=== PATIENT | male | born 1940 | race Caucasian/White ===

== ENCOUNTER → 2019-04-07 | Outpatient (CLI) | payer MEDICARE, OTHER ==
[~2019-04-07] MED LIST: DILTIAZEM HCL INJ 25 MG/5 ML VIAL IV ONE; REGADENOSON INJ 0.4 MG/5 ML DISP.SYRIN IV ONE
--- NOTE | 2019-04-13 23:02 | DRAGON STRESS TEST REPORT ---
Intravenous Lexiscan Cardiolite stress test using single photon emmision computerized tomography. Date of procedure: 04/07/2019. Ordering Provider: Dr. Jaky Smith. Patient's status: OPD. Indication: Dyspnea On Exertion in a patient with chronic atrial fibrillation.. Coronary risk factors: Age, hypertension, and dyslipidemia. Resting EKG: Atrial fibrillation with diffuse nonspecific ST-T changes. The patient's initial heart rate was in the 120s. Hence the patient was given 5 mg of IV Cardizem which slowed down the heart rate and subsequently this test was performed uneventfully. Stress EKG: No changes of ischemia. The patient had no chest pain or discomfort. There was no ventricular arrhythmias seen on the monitor Reason for termination: Protocol. Conclusions: Normal EKG and hemodynamic response to IV Lexiscan. Nuclear data: At rest the patient was given 15.17 millicuries of technetium 99m sestamibi injected intravenously. As per protocol rest non gated SPECT images were obtained. Subsequently the patient was given intravenous Lexiscan at a dose of 0.4 mg in 5 mL intravenously, followed by flush with normal saline. Subsequently the stress dose of 46.2 millicuries of technetium 99m sestamibi was injected intravenously. As per protocol stress gated images were obtained. Nuclear interpretation: Review of images showed that all segments of the myocardium had normal perfusion at rest, and normal perfusion post stress with IV Lexiscan. All segments of the myocardium had normal motion, contraction, and thickening by gated study. T. I D. ratio was abnormal at 1.51. Visually this is not reliable, and the 3 times daily ratio appears to be within normal limits.. There is no transient ischemic dilatation of the left ventricle. Computer read rest, and stress left ventricular ejection fraction were 54 %, and 51 %, respectively. Visually both the stress and rest ejection fractions were normal, and greater than 55%. Conclusion: 1. There is no scintigraphic evidence of Lexiscan induced myocardial ischemia. 2. There is no scintigraphic evidence of myocardial infarction/scar. Recommendations: Aggressive risk factor modification, and treating the underlying co- morbidities. [facility]
== END ==
LOC: RAD 08:10
PROVIDERS: ATTEND Specialist
DX: I48.2 Chronic atrial fibrillation (principal)
CPT/HCPCS: 93017; 78452; A9500; J2785; J3490; Q9969